=== PATIENT | female | born 1985 | race Two or more races ===

== ENCOUNTER 2021-06-14 21:01 | Emergency (ER) | payer SELFPAY ==
[~2021-06-14] VITALS: Ht 160 cm; Wt 68.2 kg
--- NOTE | 2021-06-14 22:05 | PHYS DOC ---
Past Medical History Past Surgical History: (OLEG RAMIREZ) General Adult EDM: Chief Complaint: DIZZY/LIGHT HEADED HPI: HPI: Patient is a 36 year old [place] speaking female who presents with 3-1/2-hour history of feeling dizzy and weak. Patient states she was cooking at 1830 when the feeling started. She also reports abdominal bloating and pain that has been going on for a few days. She states she has not had a bowel movement for 3 to 4 days, which she has experienced in the past. She states the abdominal pain usually lasts about an hour and then it goes away, but today it is much stronger and has lasted longer. Eating more specific types of food exacerbate her pain. She reports associated nausea and headache, denies vomiting and diarrhea. She states she was seen in an urgent care clinic last week for abdominal pain and bloating. She was told that she needed ultrasound to evaluate her gallbladder and her liver, but she did not have that testing performed as of yet. Patient has no other complaints at this time. (OLEG RAMIREZ) Review of Systems: Review of Systems: Constitutional: Denies fever or chills. Respiratory: Denies cough or shortness of breath. Cardiovascular: Denies chest pain or edema. GI: See HPI : Denies dysuria. Musculoskeletal: Denies back pain or joint pain. Integument: Denies rash. Neurologic: See HPI (OLEG RAMIREZ) Heart Score: C/O Chest Pain: No (OLEG RAMIREZ) Allergies: Allergies: Allergies Coded Allergies Type Severity Reaction Last Updated Verified No Known Drug Allergies 06/14/21 No (OLEG RAMIREZ) Physical Exam: PE: Constitutional: Well developed, well nourished, no acute distress, non-toxic appearance. Cardiovascular:Heart rate regular rhythm, no murmur. Lungs & Thorax: Bilateral breath sounds clear to auscultation. Abdomen: Protuberant but soft, bowel sounds normal, no tenderness, no masses, no pulsatile masses. Skin: Warm, dry, no erythema, no rash. Back: No tenderness, no CVA tenderness. Extremities: No tenderness, no cyanosis, no clubbing, ROM intact, no edema. (OLEG RAMIREZ) Current Patient Data: Labs: Laboratory Tests Test 06/14/21 21:30 POC Urine HCG, Qualitative Hcg negative (Negative) Vital Signs: Vital Signs Date Time Temp Pulse Resp B/P (MAP) Pulse Ox O2 Delivery O2 Flow Rate FiO2 06/14/21 21:43 98.7 79 25 140/89 (106) 100 Room Air 98.7 (OLEG RAMIREZ) Radiology/Procedures: Radiology/Procedures: [] (LOEG RAMIREZ) Impression: TECHNIQUE: Computed tomography of the abdomen and pelvis was performed after the intravenous administration of iodinated contrast. One or more of the following individualized dose reduction techniques were utilized for this examination: 1. Automated exposure control. 2. Adjustment of the mA and/or kV according to patient size. 3. Use of iterative reconstruction technique. COMPARISON: None. FINDINGS: Lung windows through the visualized portions of the bases reveal mild atelectasis. Bone windows reveal no suspicious lesions. The liver, gallbladder, pancreas, adrenal glands, is maintained and kidneys are unremarkable. There are no pathologically enlarged lymph nodes. An intrauterine device is in expected position. The appendix is not inflamed. There is no small bowel obstruction. IMPRESSION: 1. No acute intra-abdominal findings. (LILO ROMERO DO) Course & Med Decision Making: Course & Med Decision Making Pertinent Labs and Imaging studies reviewed. (See chart for details) Patient care was transferred to Dr. Romero at 23:00 (OLEG RAMIREZ) Christine Disclaimer: Christine Disclaimer: This electronic medical record was generated, in whole or in part, using a voice recognition dictation system. (OLEG RAMIREZ) Departure Departure Impression: Primary Impression: Abdominal pain Disposition: 01 HOME / SELF CARE / HOMELESS Condition: STABLE Patient Instructions: Abdominal Pain OLEG RAMIREZ Jun 14, 2021 22:05 LILO ROMERO DO Jun 15, 2021 01:55
[2021-06-14] MEDS ORDERED: ONDANSETRON ODT 4 MG TAB.RAPDIS. PO ONE (22:30)
[2021-06-14] MEDS ORDERED: MORPHINE SULFATE 2 MG/ML INJ. IVP ONE (22:30)
[2021-06-14 23:49] LABS: BILIRUBIN,URINE NEGATIVE (NEG); CLARITY,URINE CLEAR; COLOR,URINE YELLOW; NITRITE,URINE NEGATIVE (NEG); PROTEIN,URINE NEGATIVE (NEG-TRACE); UROBILINOGEN,URINE 0.2 mg/dL (0.2 mg/dL)
[2021-06-14 23:49] LABS: BASO % 1 % (0-3); EOS # 0.1 x10^3/uL (0.0-0.7); EOS % 1 % (0-3); LYMPH # 1.6 x10^3/uL (1.0-4.8); LYMPH % 21 % (24-48); MEAN CORPUSCULAR HEMOGLOBIN 33 pg (25-35); MEAN CORPUSCULAR HGB CONC 35 g/dL (31-37); MEAN CORPUSCULAR VOLUME 94 fL (79-100); MONO # 0.6 x10^3/uL (0.0-1.1); MONO % 8 % (0-9); NEUT # 5.2 x10^3/uL (1.8-7.7); NEUT % 69 % (31-73); PLATELET COUNT 230 x10^3/uL (140-400); RED BLOOD COUNT 3.95 x10^6/uL (3.50-5.40); WHITE BLOOD COUNT 7.5 x10^3/uL (4.0-11.0)
[2021-06-14 23:56] LABS: CALCIUM 8.9 mg/dL (8.5-10.1); CREATININE 0.9 mg/dL (0.6-1.0); GFR 71.7; POTASSIUM 3.4 mmol/L (3.5-5.1)
[2021-06-15 00:03] LABS: BACTERIA,URINE FEW /HPF (0-FEW)
[2021-06-15 00:04] LABS: ALBUMIN 4.1 g/dL (3.4-5.0); ALBUMIN/GLOBULIN RATIO 1.1 (1.0-1.7); TOTAL BILIRUBIN 0.3 mg/dL (0.2-1.0); TOTAL PROTEIN 7.7 g/dL (6.4-8.2)
[2021-06-15] MEDS ORDERED: CONTRAST GIVEN. MC PRN (00:15)
[2021-06-15] MEDS ORDERED: IOHEXOL 300 MG/ML 100ML VIAL. IV ONE (00:30)
--- NOTE | 2021-06-15 01:36 | RAD ---
EXAM: CT ABDOMEN/PELVIS WITH CONTRAST. HISTORY: Abdominal pain. TECHNIQUE: Computed tomography of the abdomen and pelvis was performed after the intravenous administ ration of iodinated contrast. One or more of the following individualized dose reduction techniques w ere utilized for this examination: 1. Automated exposure control. 2. Adjustment of the mA and/or kV according to patient size. 3. Use of iterative reconstruction technique. COMPARISON: None. FINDINGS: Lung windows through the visualized portions of the bases reveal mild atelectasis. Bone win dows reveal no suspicious lesions. The liver, gallbladder, pancreas, adrenal glands, is maintained and kidneys are unremarkable. There a re no pathologically enlarged lymph nodes. An intrauterine device is in expected position. The appendix is not inflamed. There is no small bowel obstruction. IMPRESSION: 1. No acute intra-abdominal findings. Electronically signed by: Alberto Wiggins MD (06/15/2021 1:33 AM) [facility]
[2021-06-15 02:23] VITALS: BP 153/96
== END 2021-06-15 02:53 | disposition home or self-care (01) ==
LOC: ER 21:01
DX: R10.9 Unspecified abdominal pain (principal); R51.9 Headache, unspecified; R42 Dizziness and giddiness; R53.1 Weakness; R14.0 Abdominal distension (gaseous); R11.0 Nausea; Z98.890 Other specified postprocedural states
CPT/HCPCS: 36415; 74177; 80053; 81001; 81025; 85025; 87086; 96374; 99285; J2270; Q9967